=== PATIENT | female | born 1995 | race Caucasian/White ===

== ENCOUNTER 2020-08-23 09:12 | Emergency (ER) | payer MEDICAID, SELFPAY ==
--- NOTE | 2020-08-23 10:15 | HMH.EDUTC ---
[facility] [place] Disposition Clinical Impression: Exposure to COVID-19 virus Disposition: Home, Self-Care Condition on Discharge: Good Instructions: Preventing the Spread of Coronavirus Discharge Instructions Additional Instructions: Drink plenty of fluids. Take tylenol for pain or fever. Return if you begin to have difficulty breathing. Follow up with your regular doctor. GO TO THE ER FOR ANY WORSENING SYMPTOMS Referrals: Provider,Referral, MD [Primary Care Provider] - Time of Disposition: 10:19 Medical Decision Making - Medical Records Medical records reviewed: No: I reviewed the patient's medical records. - Asaf Inquiry Pt receiving controlled substance: No Vital Signs: 08/23/20 10:28 08/23/20 10:31 Temperature 98.5 F 98.5 F Temperature Source Oral Pulse Rate 81 Pulse Rate [Left] 81 Respiratory Rate 19 19 Blood Pressure 127/81 Blood Pressure [Right Arm] 127/81 Blood Pressure Mean [Right Arm] 96 Blood Pressure Source [Right Arm] Automatic Cuff Blood Pressure Position [Right Arm] Sitting 02 Sat by Pulse Oximetry 98 Oxygen Delivery Method Room Air Orders (Tests/Meds): ORDERS Category Date Time Status Covid-19 Nasal PCR ([facility]) Routine Lab 08/23/20 10:06 Received [facility] [place] HPI - General Stated complaint: covid exposure Time Seen by Provider: 08/23/20 10:15 - History of Present Illness Provider Complaint: She has been exposed to covid. She denies any symptoms so far. [facility] History - Hepatitis A Screen Attestation statement:: This patient has been screened for Hepatitis A risk factors. I have reviewed the patient's past medical history: Yes - Social History Smoking Status: Never smoker Alcohol Intake: never Occupational Status: other ROS Obtained: Yes All systems reviewed & no additional complaints - Constitutional Constitutional: Reports system reviewed and no additional complaints, except as docu - Eyes Eyes: Reports system reviewed and no additional complaints, except as docu - ENT Ears, Nose, Mouth, and Throat: Reports system reviewed and no additional complaints, except as docu - Cardiovascular Cardiovascular: Reports system reviewed and no additional complaints, except as docu - Respiratory Respiratory: Reports system reviewed and no additional complaints, except as docu - Gastrointestinal Gastrointestingal: Reports: system reviewed and no additional complaints, except as docu Physical Exam - General General appearance: alert, in no apparent distress - Head Head exam: atraumatic, normocephalic, normal inspection - Eye Eye exam: Present: normal appearance, PERRL, EOMI - ENT ENT exam: Present: normal exam, normal oropharynx, mucous membranes moist, TM's normal bilaterally, normal external ear exam - Neck Neck exam: Present: normal inspection, full ROM, trachea midline. Absent: meningismus, lymphadenopathy - Chest Chest inspection: Present: normal inspection, symmetric chest wall rise. Absent: tenderness - Respiratory Respiratory exam: Present: normal lung sounds bilaterally. Absent: respiratory distress - Cardiovascular Cardiovascular exam: Present: regular rate, normal rhythm. Absent: JVD - Abdominal Exam Abdominal exam: Present: soft, normal bowel sounds. Absent: distention, tenderness, guarding - Extremities Exam Extremities exam: Present: normal inspection, full ROM, normal capillary refill. Absent: calf tenderness - Back Exam Back exam: Present: normal inspection. Absent: tenderness - Neurological Exam Neurological exam: Present: alert, oriented X3 - Psychiatric Psychiatric exam: Present: normal affect, normal mood - Skin Skin exam: Present: warm, dry, intact, normal color - Lymphatic Lymphatic Findings: no adenopathy
[2020-08-23 10:28] VITALS: BP 127/81; PULSE 81; RESP 19; TEMP 36.9; O2SAT 98; BMI 37.9
[2020-08-23 10:31] VITALS: BP 127/81; PULSE 81; RESP 19; TEMP 36.9; O2SAT 98
== END 2020-08-23 10:32 | disposition home or self-care (01) ==
PROVIDERS: Emergency Provider Nurse Practitioner Family
DX: Z20.822 Contact with and (suspected) exposure to COVID-19 (principal)
CPT/HCPCS: 99202; G0463; U0003

== ENCOUNTER 2020-12-05 09:07 | Emergency (ER) | payer MEDICAID, SELFPAY ==
[2020-12-05 09:10] VITALS: BP 108/78; PULSE 84; RESP 19; TEMP 36.8; O2SAT 98; BMI 36.0
--- NOTE | 2020-12-05 09:43 | HMH.EDUTC ---
[facility] [place] Disposition Clinical Impression: Low back pain Qualifiers: Chronicity: unspecified Back pain laterality: right Sciatica presence: with sciatica Sciatica laterality: sciatica of right side Qualified Code(s): M54.41 - Lumbago with sciatica, right side Disposition: Home, Self-Care Condition on Discharge: Good Instructions: Low Back Pain, DI for Low Back Pain, DI for Sciatica, DI for Back Pain With Sciatica Additional Instructions: *Etodolac tristen 6 hours with meal as needed for pain/inflammation *Remember you had a Toradol shot in the clinic today, which is similar to Etodolac do not start for the next 8-10 hours *Not additional anti-inflammatory like Ibuprofen, motrin, aleve, advil with the above amount of . You can still take Tylenol every 4 hours as needed if you need something else for pain *Ice 20 minutes every 2 hours for the first 48 hours after the initial injury followed by moist heat every 20 minutes 3-4 times a day to affected area *Muscle relaxer every 8 hours as needed for muscle spasms but remember, it WILL cause drowsiness You cannot take it and drive, operate machinery or care for small children. *Keep this area active, no movement leads to more stiffness, However take it easy and avoid heavy lifting pushing or pulling *Follow up with you family doctor if no improvement for further treatment Prescriptions: Etodolac 200 mg PO Q6HP PRN #20 cap PRN Reason: Moderate Pain Transmission Status: Received by [facility] #[id number] Cyclobenzaprine HCl [Flexeril 10mg tablet] 10 mg PO TID PRN #15 tab PRN Reason: Muscle Spasm Transmission Status: Received by [facility] #[id number] Referrals: Provider,Referral, [Primary Care Provider] - As needed Time of Disposition: 09:52 Medical Decision Making - Asaf Inquiry Pt receiving controlled substance: No Asaf was queried for this patient: No Vital Signs: 12/05/20 09:10 12/05/20 10:03 Temperature 98.2 F 98.2 F Temperature Source Oral Pulse Rate 84 Pulse Rate [Right Brachial] 84 Respiratory Rate 19 19 Blood Pressure 108/78 L Blood Pressure [Right Arm] 108/78 L Blood Pressure Mean [Right Arm] 88 Blood Pressure Source [Right Arm] Automatic Cuff Blood Pressure Position [Right Arm] Sitting 02 Sat by Pulse Oximetry 98 Oxygen Delivery Method Room Air - Lab Data Lab results reviewed: Yes: I reviewed the patient's lab results. Lab Results 12/05/20 09:40: [facility] Clinic Negative Orders (Tests/Meds): ED MEDICATIONS Discontinued Medications Generic Name Dose Route Start Last Admin Trade Name Hernandez PRN Reason Stop Dose Admin Ketorolac Tromethamine 60 mg 12/05/20 09:50 12/05/20 10:00 Ketorolac 60mg/2ml Vial IM 12/05/20 09:51 60 mg ONCE ONE Administration Methylprednisolone Sodium Succinate 125 mg 12/05/20 09:50 12/05/20 10:00 Methylprednisolone Sod Succ 125mg Vial IM 12/05/20 09:51 125 mg ONCE ONE Administration Medical Decision Narrative: Discussed xray and patient declined at this time [facility] [place] HPI - General Stated complaint: lower back pain Time Seen by Provider: 12/05/20 09:43 Mode of Arrival: Ambulatory Source of Information: Patient Limitations: No Limitations Description of Symptoms (Recalled from Triage Doc. by RN): PATIENT C/O LOWER BACK PAIN THAT RADIATES DOWN HER RIGHT LEG SINCE YESTERDAY AFTERNOON HEENT Symptoms (Recalled from RN notes): No Resp Symptoms (Recalled from RN notes): No Skin Symptoms (Recalled from RN notes): No MS Symptoms (Recalled from RN notes): Yes Functional Status (Recalled from RN notes): WNL - History of Present Illness Provider Complaint: Patient states that she stood up holding small child and felt something pull in her lower back on her right side State that ever since she has been having pain in her right side of lower back that radiates into hip and upper leg State that pain is worse when she tries to sit down and feels like a toothache in her hip an
[2020-12-05 09:51] LABS: UTC Pregnancy Test, Urine Negative (Negative)
[2020-12-05 10:03] VITALS: BP 108/78; PULSE 84; RESP 19; TEMP 36.8; O2SAT 98
== END 2020-12-05 10:13 | disposition home or self-care (01) ==
PROVIDERS: Emergency Provider Nurse Practitioner
DX: M54.41 Lumbago with sciatica, right side (principal)
CPT/HCPCS: 81025; 96372; 99202; G0463